=== PATIENT | female | born 1990 | race Caucasian/White ===

== ENCOUNTER 2016-10-09 13:24 | Emergency (ER) | payer MEDICAID, OTHER ==
[~2016-10-09] VITALS: Ht 172.7 cm; Wt 93.4 kg
[2016-10-09 13:51] LABS: Urine Bilirubin Negative (Negative); Urine Blood Negative /uL (Negative); Urine Color Yellow (Yellow); Urine Glucose Normal (Normal); Urine Ketone Negative (Negative); Urine Nitrite Negative (Negative); Urine RBC 1 /hpf (0 - 4); Urine Squamous Epithelial Cell FEW /hpf (<5); Urine Urobilinogen Normal (Negative)
[2016-10-09] MEDS ORDERED: SODIUM CHLORIDE 0.9% 500 ML IVB ONE (14:06)
[2016-10-09] MEDS ORDERED: MORPHINE SULFATE 4 MG/ML SYRG IV ONE (14:15)
[2016-10-09] MEDS ORDERED: ONDANSETRON HCL 4 MG/2 ML VIAL IV ONE (14:15)
[2016-10-09 14:19] LABS: CONDITION Y; Hematocrit 38.8 % (36.0-46.0); Hemoglobin 13.6 g/dL (12.2-16.2); Mean Corpuscular Hemoglobin 31.2 pg (28.0-32.0); Mean Corpuscular Hgb Conc. 34.9 g/dL (32.0-36.0); Mean Corpuscular Volume 89.3 fL (80.0-100.0); Platelet Count (auto) 196 10^3/uL (140-450); Red Cell Distribution Width 12.5 % (11.6-16.0); White Blood Cell 4.6 10^3/uL (4.4-10.8)
[2016-10-09 14:40] LABS: Metamyelocytes % 0; Myelocytes % 0; Promyelocytes % 0; Reactive Lymphocytes 0
[2016-10-09 15:24] LABS: Albumin 3.6 g/dL (3.4-5.0); BUN/Creatinine Ratio 14.9; Bilirubin, Total 0.3 mg/dL (0.2-1.0); Calcium 8.9 mg/dL (8.5-10.1); Potassium 3.8 mmol/L (3.5-5.1); Total Protein 7.2 g/dL (6.4-8.2)
[2016-10-09 15:36] LABS: Platelet Estimate Adequate; RBC Morphology Normal
[2016-10-09 15:37] VITALS: BP 101/58
== END 2016-10-09 15:15 | disposition home or self-care (01) ==
LOC: ER 13:24
DX: K52.9 Noninfective gastroenteritis and colitis, unspecified (principal); F17.210 Nicotine dependence, cigarettes, uncomplicated; E78.5 Hyperlipidemia, unspecified; Z88.6 Allergy status to analgesic agent; Z98.51 Tubal ligation status
CPT/HCPCS: 36415; 74176; 80053; 81001; 81025; 85007; 85027; 94761; 96361; 96374; 96375; 99285; J2270; J2405; J7030; J7040

== ENCOUNTER 2016-11-11 18:28 | Emergency (ER) | payer MEDICAID ==
[~2016-11-11] VITALS: Ht 172.7 cm; Wt 93.4 kg
[2016-11-12] MEDS ORDERED: MORPHINE SULFATE 4 MG/ML SYRG IV ONE (00:30)
[2016-11-12] MEDS ORDERED: ONDANSETRON HCL 4 MG/2 ML VIAL IV ONE (00:30)
[2016-11-12] MEDS ORDERED: HYDROcodone-ACET 10/325MG TAB PO ONE (00:30)
[2016-11-12 00:41] LABS: Basophils # (auto) 0.1 uL; Basophils % (auto) 0.8 % (0.0-2.0); Eosinophils # (auto) 0.3 uL; Eosinophils % (auto) 2.9 % (0.0-7.0); Hematocrit 37.7 % (36.0-46.0); Lymphocytes # (auto) 2.7 uL; Lymphocytes % (auto) 30.3 % (10.0-50.0); Mean Corpuscular Hemoglobin 30.9 pg (28.0-32.0); Mean Corpuscular Hgb Conc. 34.5 g/dL (32.0-36.0); Mean Corpuscular Volume 89.6 fL (80.0-100.0); Mean Platelet Volume 8.5 fL (7.4-10.4); Monocytes # (auto) 1.1 uL; Monocytes % (auto) 12.5 % (0.0-12.0); Neutrophils # (auto) 4.7 uL; Neutrophils % (auto) 53.5 % (37.0-80.0); Platelet Count (auto) 185 10^3/uL (140-450); Red Cell Distribution Width 11.8 % (11.6-16.0); White Blood Cell 8.9 10^3/uL (4.4-10.8)
[2016-11-12 00:58] LABS: Albumin 3.5 g/dL (3.4-5.0); BUN/Creatinine Ratio 28.1; Calcium 8.5 mg/dL (8.5-10.1); Potassium 3.9 mmol/L (3.5-5.1)
[2016-11-12 01:00] LABS: Bilirubin, Total 0.2 mg/dL (0.2-1.0); Total Protein 7.3 g/dL (6.4-8.2)
[2016-11-12 03:46] VITALS: BP 113/72
[2016-11-12 07:50] LABS: Urine Color Yellow (Yellow)
[2016-11-12 07:51] LABS: Urine Amorphous Sediment FEW /hpf; Urine Bilirubin Negative (Negative); Urine Blood Negative /uL (Negative); Urine Glucose Normal (Normal); Urine Ketone Negative (Negative); Urine Nitrite Negative (Negative); Urine RBC NONE SEEN /hpf (0 - 4); Urine Squamous Epithelial Cell FEW /hpf (<5); Urine Urobilinogen Normal (Negative); Urine pH 6.5 (5.0-8.0)
== END 2016-11-12 05:02 | disposition home or self-care (01) ==
LOC: ER 18:46
DX: G43.909 Migraine, unspecified, not intractable, without status migrainosus (principal); F17.210 Nicotine dependence, cigarettes, uncomplicated; Z98.51 Tubal ligation status; E78.5 Hyperlipidemia, unspecified
CPT/HCPCS: 36415; 70450; 80053; 81001; 85025

== ENCOUNTER 2016-11-24 01:14 | Emergency (ER) | payer MEDICAID ==
[~2016-11-24] VITALS: Ht 172.7 cm; Wt 93.4 kg
[2016-11-24 01:19] VITALS: BP 145/97
[2016-11-24] MEDS ORDERED: PROMETHAZINE HCL 25 MG/ML 1ML IV ONE (04:15)
[2016-11-24] MEDS ORDERED: KETOROLAC TROMETH 30 MG/ML 1ML VIAL IV ONE (04:15)
[2016-11-24] MEDS ORDERED: SODIUM CHLORIDE 0.9% 1,000 ML IV ONE (04:15)
== END 2016-11-24 05:56 | disposition home or self-care (01) ==
LOC: ER 01:14
DX: G43.909 Migraine, unspecified, not intractable, without status migrainosus (principal); F17.210 Nicotine dependence, cigarettes, uncomplicated; Z98.51 Tubal ligation status
CPT/HCPCS: 96361; 96374; 96375; 99284; J1885; J2550; J7030

== ENCOUNTER 2016-12-19 08:18 | Emergency (ER) | payer MEDICAID ==
[~2016-12-19] VITALS: Ht 172.7 cm; Wt 93.0 kg
[2016-12-19 08:35] VITALS: BP 130/82
[2016-12-19] MEDS ORDERED: KETOROLAC TROMETH 60MG/2ML VIAL IM ONE (09:00)
== END 2016-12-19 09:04 | disposition home or self-care (01) ==
LOC: ER 08:18
DX: M54.5 Low back pain (principal); F17.210 Nicotine dependence, cigarettes, uncomplicated; Z88.6 Allergy status to analgesic agent; X50.1XXA Overexertion from prolonged static or awkward postures, initial encounter; Y93.B9 Activity, other involving muscle strengthening exercises; Y99.8 Other external cause status; Y92.89 Other specified places as the place of occurrence of the external cause
CPT/HCPCS: 81002; 96372; 99283; J1885

== ENCOUNTER 2017-02-23 16:19 | Emergency (ER) | payer MEDICAID ==
[~2017-02-23] VITALS: Ht 172.7 cm; Wt 99.8 kg
[2017-02-23 17:14] LABS: Basophils # (auto) 0 uL; Basophils % (auto) 0.4 % (0.0-2.0); Eosinophils # (auto) 0.2 uL; Eosinophils % (auto) 1.9 % (0.0-7.0); Hematocrit 41.2 % (36.0-46.0); Hemoglobin 14.2 g/dL (12.2-16.2); Lymphocytes # (auto) 2.5 uL; Lymphocytes % (auto) 26.3 % (10.0-50.0); Mean Corpuscular Hemoglobin 31.3 pg (28.0-32.0); Mean Corpuscular Hgb Conc. 34.4 g/dL (32.0-36.0); Mean Platelet Volume 8.7 fL (6.9-10.8); Monocytes % (auto) 10.5 % (0.0-12.0); Neutrophils # (auto) 5.8 uL; Neutrophils % (auto) 60.9 % (37.0-80.0); Platelet Count (auto) 213 10^3/uL (140-450); Red Cell Distribution Width 12.7 % (11.8-14.3); White Blood Cell 9.6 10^3/uL (4.4-10.8)
[2017-02-23 17:22] LABS: Urine Bilirubin Negative (Negative); Urine Blood Negative /uL (Negative); Urine Color Yellow (Yellow); Urine Glucose Normal (Normal); Urine Ketone Negative (Negative); Urine Nitrite Negative (Negative); Urine RBC <1 /hpf (0 - 4); Urine Squamous Epithelial Cell FEW /hpf (<5); Urine Urobilinogen Normal (Negative)
[2017-02-23 17:37] LABS: Albumin 3.9 g/dL (3.4-5.0); BUN/Creatinine Ratio 22.2; Bilirubin, Total 0.3 mg/dL (0.2-1.0); Calcium 8.9 mg/dL (8.5-10.1); Potassium 3.8 mmol/L (3.5-5.1)
[2017-02-23] MEDS ORDERED: PANTOPRAZOLE 40 MG/10 ML VIAL IV ONE (18:00)
[2017-02-23 18:02] VITALS: BP 148/91
== END 2017-02-23 19:02 | disposition home or self-care (01) ==
LOC: ER 16:19
DX: K29.70 Gastritis, unspecified, without bleeding (principal); F17.210 Nicotine dependence, cigarettes, uncomplicated; E78.5 Hyperlipidemia, unspecified
CPT/HCPCS: 36415; 76705; 80053; 81001; 81025; 83690; 85025; 96374; 99285; C9113

== ENCOUNTER 2017-05-23 21:51 | Emergency (ER) | payer MEDICAID ==
[~2017-05-23] VITALS: Ht 172.7 cm; Wt 108.0 kg
[2017-05-23 22:24] VITALS: BP 130/74
[2017-05-23 22:49] LABS: Urine Bacteria MOD /hpf (None Seen); Urine Blood Negative /uL (Negative); Urine Mucus FEW (None Seen); Urine Specific Gravity 1.034 (1.001-1.035); Urine WBC 11 /hpf (0 - 5)
== END 2017-05-23 22:34 | disposition left against medical advice (07) ==
LOC: ER 21:53
DX: R11.2 Nausea with vomiting, unspecified (principal); M79.1 Myalgia; Z53.21 Procedure and treatment not carried out due to patient leaving prior to being seen by health care provider
CPT/HCPCS: 81001; 81025

== ENCOUNTER 2017-09-09 20:16 | Emergency (ER) | payer MEDICAID ==
[~2017-09-09] VITALS: Ht 172.7 cm; Wt 104.8 kg
[2017-09-09 20:35] VITALS: BP 124/80
== END 2017-09-09 21:40 | disposition left against medical advice (07) ==
LOC: ER 20:16
DX: G43.909 Migraine, unspecified, not intractable, without status migrainosus (principal); Z53.21 Procedure and treatment not carried out due to patient leaving prior to being seen by health care provider

== ENCOUNTER 2018-02-13 10:28 | Emergency (ER) | payer MEDICAID ==
[~2018-02-13] VITALS: Ht 172.7 cm; Wt 108.9 kg
[2018-02-13 10:40] VITALS: BP 144/92
[2018-02-13] MEDS ORDERED: cefTRIAXone SOD 1,000 MG VL IM ONE (11:15)
[2018-02-13] MEDS ORDERED: methylPREDNISolone SOD SUCC 125 MG/2 ML VL IM ONE (11:15)
== END 2018-02-13 11:35 | disposition home or self-care (01) ==
LOC: ER 10:28
DX: K04.7 Periapical abscess without sinus (principal); J03.90 Acute tonsillitis, unspecified; M19.90 Unspecified osteoarthritis, unspecified site; E78.5 Hyperlipidemia, unspecified; F17.210 Nicotine dependence, cigarettes, uncomplicated; Z88.6 Allergy status to analgesic agent; Z91.013 Allergy to seafood
CPT/HCPCS: 96372; 99284; J0696; J2930

== ENCOUNTER 2018-06-25 22:22 | Emergency (ER) | payer MEDICAID ==
[~2018-06-25] VITALS: Ht 170.2 cm; Wt 108.9 kg
[2018-06-25 23:08] VITALS: BP 134/90
== END 2018-06-25 23:25 | disposition left against medical advice (07) ==
LOC: ER 22:22 → EDBD 22:22 → ER 23:25
DX: M54.5 Low back pain (principal); Z53.21 Procedure and treatment not carried out due to patient leaving prior to being seen by health care provider; W10.9XXA Fall (on) (from) unspecified stairs and steps, initial encounter; Y93.89 Activity, other specified; Y92.89 Other specified places as the place of occurrence of the external cause; Y99.8 Other external cause status
CPT/HCPCS: 72110

== ENCOUNTER 2018-10-21 22:36 | Emergency (ER) | payer MEDICAID ==
[~2018-10-21] VITALS: Ht 172.7 cm; Wt 122.5 kg
[2018-10-21 22:58] VITALS: BP 121/73
[2018-10-21 23:20] LABS: Basophils # (auto) 0 uL; Basophils % (auto) 0.4 % (0.0-2.0); Eosinophils # (auto) 0.1 uL; Eosinophils % (auto) 1.4 % (0.0-7.0); Hematocrit 36.2 % (36.0-46.0); Hemoglobin 12.2 g/dL (12.2-16.2); Lymphocytes # (auto) 1.6 uL; Lymphocytes % (auto) 22.1 % (10.0-50.0); Mean Corpuscular Hemoglobin 29.8 pg (28.0-32.0); Mean Corpuscular Hgb Conc. 33.5 g/dL (32.0-36.0); Mean Corpuscular Volume 88.9 fL (80.0-100.0); Monocytes # (auto) 0.7 uL; Monocytes % (auto) 9.5 % (0.0-12.0); Neutrophils # (auto) 4.9 uL; Neutrophils % (auto) 66.6 % (37.0-80.0); Nucleated Red Blood Cells % 0.1 %; Platelet Count (auto) 162 10^3/uL (140-450); Red Blood Cells 4.08 10^6/uL (4.0-5.20); Red Cell Distribution Width 13.1 % (11.8-14.3); White Blood Cell 7.4 10^3/uL (4.4-10.8)
[2018-10-21 23:37] LABS: Alanine Aminotransferase 59 U/L (13-56); Albumin 2.8 g/dL (3.4-5.0); Anion Gap 11 (5-15); Aspartate Aminotransferase 32 U/L (15-37); BUN/Creatinine Ratio 15.5; Blood Urea Nitrogen 13 mg/dL (7-18); Carbon Dioxide 23 mmol/L (21-32); Chloride 109 mmol/L (98-107); GFR African American 102 mL/min; GFR Non-African American 85 mL/min; Glucose 111 mg/dL (74-106); Potassium 3.9 mmol/L (3.5-5.1); Sodium 143 mmol/L (136-145)
[2018-10-21 23:40] LABS: Urine WBC None Seen /hpf (0 - 5)
[2018-10-21 23:42] LABS: Alkaline Phosphatase 108 U/L (45-117); Bilirubin, Total 0.2 mg/dL (0.2-1.0); Total Protein 6.8 g/dL (6.4-8.2)
[2018-10-21 23:57] LABS: Urine Bacteria FEW /hpf (None Seen); Urine Blood 1+ /uL (Negative); Urine Specific Gravity 1.007 (1.001-1.035)
[2018-10-22 00:15] LABS: Amphetamine Screen, Urine NEGATIVE (NEGATIVE); Barbiturate Scree,Urine NEGATIVE (NEGATIVE); Benzodiazephine Screen, Urine NEGATIVE (NEGATIVE); Cannabinoid Screen, Urine NEGATIVE (NEGATIVE); Cocaine Screen, Urine NEGATIVE (NEGATIVE); Opiate Scree,Urine NEGATIVE (NEGATIVE); Phencyclidine Screen, Urine NEGATIVE (NEGATIVE)
== END 2018-10-22 00:50 | disposition left against medical advice (07) ==
LOC: ER 22:39
DX: R00.2 Palpitations (principal); Z53.21 Procedure and treatment not carried out due to patient leaving prior to being seen by health care provider
CPT/HCPCS: 36415; 80053; 80307; 81001; 84484; 85025; 93005